=== PATIENT | female | born 1990 ===

== ENCOUNTER 2020-07-21 20:19 | Outpatient (CLI) | payer OTHER ==
[~2020-07-21] VITALS: Ht 165.1 cm; Wt 98.6 kg
--- NOTE | 2020-07-21 18:10 | NUR ---
1809- PT PRESENTS TO LDR COMPLAINING OF CONTRACTIONS. AMBULATORY TO ROOM LR2, CHANGED INTO GOWN. 1827- EFM X2 APPLIED. PT VERY TEARFUL AND STATES SHE IS AFRAID TO GET HER CERVIX CHECKED BECAUSE IT IS SO PAINUL FOR HER. REASSURANCE PROVIDED AND INSTRUCTIONS FOR ASSISTING NURSE FOR A BETTER AND LESS PAINFUL CERVICAL EXAM. PT DENIES LEAKING FLUID AND STATES THAT SHE HAS HAD SOME PINK SPOTTING. STATES SHE IS FEELING BABY MOVE. 1834- SVE BY THIS NURSE WITH POSTERIOR CERVIX. PT TOLERATED WELL WITH PATIENCE AND GOING SLOWLY. PT VERY GRATEFUL TO NURSE. PLAN OF CARE FOR LABOR CHECK DISCUSSED AND QUESTIONS ANSWERED. 1839- NURSING ADMISSION HISTORY AND ASSESSMENT COMPLETE. ADMISSIONS HAS NOT GOT PT IN THE COMPUTER YET. 1854- PT OFF MONITOR TO AMBULATE IN THE HALLS. 1934- PT BACK ON MONITOR FOR STRIP. STATES HER CONTRACTIONS HAVE ALMOST DISAPPEARED. 1999- PT STATES SHE HAS ONLY HAD 1 CONTRACTION WHILE ON MONITOR THIS TIME. GAVE PT OPTION TO AMBULATE SOME MORE OR HAVE CERVICAL EXAM NOW AND POSSIBLY GO HOME. PT WISHES TO HAVE HER CERVIX CHECKED NOW. SVE BY THIS NURSE WITH NO CHANGE. DISCUSSED EARLY LABOR VS ACTIVE LABOR AND WHEN TO RETURN TO LDR. ALSO DISCUSSED COMFORT MEASURES FOR HOME. QUESTIONS ANSWERED AND PT VERBALIZES UNDERSTANDING. PT OFF MONITORS FOR DISMISSAL. 2007- MESSAGE LEFT WITH DR DOTY TO CALL BACK. 2019- DR DOTY CALLED AND UPDATED ON PT HISTORY, COMPLAINT, STRIP INTERPRETATION, SVE WITH NO CHANGE, COMFORT LEVEL, VSS, AND SCHEDULED FOR INDUCTION ON 07/26. ORDER RECEIVED FOR DISMISSAL TO HOME WITH LABOR PRECAUTIONS. 2039- DISMISSAL INSTRUCTIONS GIVEN AND PT VERBALIZES UNDERSTANDING. PT DISMISSED TO HOME AMBULATORY ACCOMPANIED BY .
[2020-07-21 19:00] VITALS: BP 130/75; PULSE 78; TEMP 98.3
[2020-07-21] MEDS ORDERED: PRENATAL VITAMI1 TA3 PO (20:25)
[2020-07-22] MEDS ORDERED: MOTRIN 800800 MG/TAB PO (18:50)
== END 2020-07-21 20:40 | disposition home or self-care (01) ==
LOC: LDRO 20:19 → LDR 20:24 → LDRO 20:40
DX: O62.9 Abnormality of forces of labor, unspecified (principal); Z3A.40 40 weeks gestation of pregnancy
CPT/HCPCS: OP

== ENCOUNTER 2020-07-22 06:44 | Inpatient (IN) | payer OTHER ==
[2020-07-22] VITALS (34 sets, daily range): BP systolic 108–141; BP diastolic 55–84; PULSE 58–108; TEMP 98.1–98.4
[~2020-07-22] VITALS: Ht 165.1 cm; Wt 99.1 kg
[~2020-07-22 06:44] MED LIST: PRENATAL VITAMI1 TA3 PO
[2020-07-22 07:52] LABS: BASO # 0.1 (0.0-0.2); BASO % 0.4 % (0.0-2.0); EOS # 0.1 (0.0-0.7); GRAN # 8.8 (1.4-6.5); GRAN % 71.3 % (42.2-75.2); HEMOGLOBIN 12.9 g/dl (12.5-16.0); LYMPH # 2.6 (1.2-3.4); LYMPH % 21.2 % (20.0-51.0); MEAN CELL VOLUME 89 fl (80.0-100.0); MEAN CORPUSCULAR HEMOGLOBIN 32 pg (27.0-31.0); MEAN CORPUSCULAR HGB CONC 36 g/dl (33.0-37.0); MEAN PLATELET VOLUME 10.3 fl (7.4-10.4); MONO # 0.7 (0.1-0.6); MONO % 5.6 % (1.7-9.3); PLATELET COUNT 219 K/mm3 (130-400); RED BLOOD COUNT 4.08 M/mm3 (4.10-5.30); REDCELL DISTRIBUTION WIDTH-CV 12.9 % (11.5-14.5)
[2020-07-22 07:54] LABS: HEMATOCRIT 36.3 % (37.0-47.0)
--- NOTE | 2020-07-22 08:51 | NUR ---
0710 PATIENT HERE STATES THAT CONTRACTIONS ARE WAY MORE INTENSE THEN LAST NIGHT WHEN HERE. EFM ON FHT 125 BABY VERY ACTIVE. ASSESSMENT COMPLETED. DR LOERA CALLED AND ORDERS TO ADMIT PATIENT FOR LABOR AND MAY HAVE EPIDURAL. 0715 IV STARTED IN LEFT HAND BY Jenni GARCIA RN, LR HUNG WITH CECY 5MU. PATIENT VERY ANXIOUS AND TEARFUL.
--- NOTE | 2020-07-22 09:00 | NUR ---
7038 R MILANA CALLED TO COME FOR EPIDURAL PLACEMENT
--- NOTE | 2020-07-22 09:02 | NUR ---
3445 PATIENT SITS UP ON EDGE OF BED FOR EPIDUAL PLACEMENT. VERY TEARFUL. TOLERATES WELL. SEE JOSE NOTES FOR QUESTIONS
--- NOTE | 2020-07-22 14:18 | NUR ---
1250 PATIENT COMPLETE AND +1 STATION. WILL PUSH WITH EACH CONTRACTIONS. DR LOERA CALLED AND UPDATED TO START HEADING TO HOSPITAL FOR DELIVERY
--- NOTE | 2020-07-22 14:20 | NUR ---
1320 HERNANDEZ OUT. CONTINUE TO PUSH WITH EACH CONTRACTION.
--- NOTE | 2020-07-22 14:20 | NUR ---
5207 DR LOERA HERE AT BEDSIDE. PATIENT CONTINUES TO PUSH WITH EACH CONTRACTION
--- NOTE | 2020-07-22 14:21 | NUR ---
1340 BABY BOY DELIVERED VIA BY DR LOERA. CORD CLAMPED AND CUT BY DR LOERA AND FATHER. BABY TO MOMS CHEST, STRONG CRY NOTED. 1342 PLACENTA DELIVERED AND PITOCIN STARTED AT 333 PER PROTOCOL. FUNDUS MASSAGED UNTIL FIRM WITH MODERATE AMOUNT BLEEDING NOTED. 1350 REPAIR DONE AT THIS TIME, PATIENT TOLERATES WELL/. FUNDUS FIRM
--- NOTE | 2020-07-22 18:30 | NUR ---
Report recieved. Holding fussing infant. Requests assistance, states, "Why is he crying?" Report recieved. Updated whiteboard and reviewed POC. Assisted with 's diaper change.
[2020-07-22] MEDS ORDERED: MOTRIN 800800 MG/TAB PO (18:50)
[2020-07-23 00:20] VITALS: BP 126/76; PULSE 106; TEMP 97.5
[2020-07-23 04:30] VITALS: BP 118/63; PULSE 78; TEMP 97.8
[2020-07-23 07:00] VITALS: BP 107/58; PULSE 87; TEMP 97.9
--- NOTE | 2020-07-23 09:48 | NUR ---
Initial visit; Parents thanked for offering congratulations for the of their son. thanked family for choosing [facility].
[2020-07-23 17:10] VITALS: BP 127/79; PULSE 89; TEMP 98.2
--- NOTE | 2020-07-23 17:10 | NUR ---
Patient given discharge instructions. DEnies questions.
== END 2020-07-23 17:15 | disposition home or self-care (01) | DRG 807 ==
LOC: LDRO 06:44 → OB 07:23 → LDR 07:23 → OB 15:34
PROVIDERS: ADMIT Obstetrics & Gynecology
PROC: 10E0XZZ Delivery of Products of Conception, External Approach (ICD-10-PCS; principal; 2020-07-22)
PROC: 0KQM0ZZ Repair Perineum Muscle, Open Approach (ICD-10-PCS; 2020-07-22)
PROC: 10907ZC Drainage of Amniotic Fluid, Therapeutic from Products of Conception, Via Natural or Artificial Opening (ICD-10-PCS; 2020-07-22)
DX: O48.0 Post-term pregnancy (principal); Z37.0 Single live birth; O99.214 Obesity complicating childbirth; O99.824 Streptococcus B carrier state complicating childbirth; O70.1 Second degree perineal laceration during delivery; E66.9 Obesity, unspecified; Z3A.40 40 weeks gestation of pregnancy
CPT/HCPCS: J2540; J2590; J2795; J7120